=== PATIENT | male | born 1980 | race Caucasian/White ===

== ENCOUNTER 2018-01-10 08:29 | Emergency (ER) | payer BC ==
[2018-01-10 08:45] VITALS: BP 122/84
--- NOTE | 2018-01-10 09:02 | UC ---
Lower Extremity/Ankle HPI - HPI Summary HPI Summary: Pt c/o sudden onset of right ankle pain, swelling, erythema X 1 day. Pt has history of got but staples snot take alopurinol as prescribed. Pt also c/o itchy rash to bilateral medial and posterior calves after hiking yesterday and walking through plants that caused him to feel a "burning and itching" feeling and mild erythema. - History of Current Complaint Chief Complaint: UCLowerExtremity Stated Complaint: RT ANKLE CONCERN/RASH ON CALVES Time Seen by Provider: 01/10/18 08:51 Hx Obtained From: Patient Onset/Duration: Sudden Onset, Still Present Severity Initially: Mild Severity Currently: Moderate Pain Intensity: 10 Aggravating Factor(s): Standing, Ambulation Alleviating Factor(s): Rest, Elevation Able to Bear Weight: Yes - minimal - Risk Factors Gout Risk Factors: Male DVT Risk Factors: Negative Septic Arthritis Risk Factor: Negative - Allergies/Home Medications Allergies/Adverse Reactions: Allergies Allergy/AdvReac Type Severity Reaction Status Date / Time No Known Allergies Allergy Verified 01/10/18 08:43 Home Medications: Home Medications Ibuprofen TAB* [Advil TAB*] 600 mg PO Q6H PRN 01/10/18 [History Confirmed ] PMH/Surg Hx/FS Hx/Imm Hx Previously Healthy: Yes - Surgical History Surgical History: Yes Surgery Procedure, Year, and Place: right inguinal surg age 5 yo - Family History Known Family History: Positive: Cardiac Disease - Social History Occupation: Employed Full-time Lives: With Family Alcohol Use: Occasionally Substance Use Type: None Smoking Status (MU): Heavy Every Day Tobacco Smoker Type: Cigarettes, Smokeless Tobacco Amount Used/How Often: 1/2 PPD Length of Time of Smoking/Using Tobacco: 1 year Have You Smoked in the Last Year: Yes Household Exposure Type: Cigarettes Review of Systems Constitutional: Negative Skin: Rash Eyes: Negative ENT: Negative Respiratory: Negative Cardiovascular: Negative Gastrointestinal: Negative Genitourinary: Negative Motor: Decreased ROM - right ankle Neurovascular: Negative Musculoskeletal: Arthralgia, Decreased ROM, Edema, Myalgia Neurological: Negative Psychological: Negative Is Patient Immunocompromised?: No All Other Systems Reviewed And Are Negative: Yes Physical Exam Triage Information Reviewed: Yes Appearance: Pain Distress Vital Signs: Initial Vital Signs Temp 98.7 F 01/10/18 08:40 Pulse 62 01/10/18 08:40 Resp 15 01/10/18 08:40 BP 122/84 01/10/18 08:40 Pulse Ox 100 01/10/18 08:40 Vital Signs Reviewed: Yes Eye Exam: Normal ENT: Positive: Hearing grossly normal Dental Exam: Normal Neck exam: Normal Respiratory: Positive: No respiratory distress Musculoskeletal: Positive: ROM Limited @, Edema @ - right ankle, right lateral malleolus is warm , mild erythema, and moderate swelling Neurological Exam: Normal Psychological Exam: Normal Skin: Positive: rashes - right medial mid calf, mild erythema with 1-2 intact clear fluid filled blisters. Lower Extremity Course/Dx - Differential Dx/Diagnosis Differential Diagnosis/HQI/PQRI: Cellulitis, Gout Provider Diagnoses: gout. contact dermatitis Discharge - Sign-Out/Discharge Documenting (check all that apply): Patient Departure All imaging exams completed and their final reports reviewed: No Studies - Discharge Plan Condition: Stable Disposition: HOME Prescriptions: Colchicine* [Colcrys*] 0.6 mg PO DAILY #3 tab predniSONE TAB* [Deltasone 20 MG TAB*] 20 mg PO DAILY #3 tab Patient Education Materials: Contact Dermatitis (ED), Low Purine Diet (ED), Gout (ED) Referrals: [facility] [Provider Group] - As Soon As Possible No Primary Care Phys,NOPCP [Primary Care Provider] - - Billing Disposition and Condition Condition: STABLE Disposition: Home
== END 2018-01-10 09:15 | disposition home or self-care (01) ==
LOC: UCCORT 08:29
DX: M10.9 Gout, unspecified (principal); L25.9 Unspecified contact dermatitis, unspecified cause; F17.210 Nicotine dependence, cigarettes, uncomplicated
CPT/HCPCS: 99212; G0463

== ENCOUNTER 2018-03-29 17:29 | Emergency (ER) | payer BC ==
[2018-03-29 19:12] VITALS: BP 146/76
--- NOTE | 2018-03-29 20:32 | ED ---
Lower Extremity - HPI Summary HPI Summary: pt was playing hockey yesterday and the puck hit his left inner foot. he states that it hurt a lot. it is feeling better but it is still a little swollen. he does not like to take medications but he took aleve today. - History of Current Complaint Chief Complaint: UCLowerExtremity Stated Complaint: LT FOOT INJURY-SPORTS RELATED Hx Obtained From: Patient Mechanism Of Injury: Direct Blow - by a hockey puck Onset of Pain: Immediate Onset/Duration: Days - 1 Severity Currently: Moderate Pain Intensity: 4 - Allergies/Home Medications Allergies/Adverse Reactions: Allergies Allergy/AdvReac Type Severity Reaction Status Date / Time seasonal Allergy Wheezing Uncoded 03/29/18 19:06 PMH/Surg Hx/FS Hx/Imm Hx Previously Healthy: Yes Respiratory History: Reports: Hx Asthma - SEASONAL allergies - Surgical History Surgery Procedure, Year, and Place: right inguinal surg age 5 yo Infectious Disease History: No Infectious Disease History: Denies: Traveled Outside the [place] in Last 30 Days - Family History Known Family History: Positive: Cardiac Disease - Social History Alcohol Use: Occasionally Substance Use Type: Reports: None Smoking Status (MU): Heavy Every Day Tobacco Smoker Type: Cigarettes, Smokeless Tobacco Amount Used/How Often: 1/2 PPD Length of Time of Smoking/Using Tobacco: 1 year Have You Smoked in the Last Year: Yes Review of Systems Constitutional: Negative Eyes: Negative ENT: Negative Cardiovascular: Negative Respiratory: Negative Gastrointestinal: Negative Genitourinary: Negative Positive: Other - foot pain Skin: Negative Neurological: Negative Psychological: Normal All Other Systems Reviewed And Are Negative: No Physical Exam Triage Information Reviewed: Yes Vital Signs On Initial Exam: Initial Vitals Temp Pulse Resp BP Pulse Ox 98.6 F 77 12 146/76 100 03/29/18 19:07 03/29/18 19:07 03/29/18 19:07 03/29/18 19:07 03/29/18 19:07 Vital Signs Reviewed: Yes Appearance: Positive: Well-Appearing, No Pain Distress, Well-Nourished Skin: Positive: Warm, Dry, Other - light bruising to the medial dorsal aspect of proximal mid foot. multiple healing abrasions to his lower legs where his boots are and especially notable to the medial malleoli bilaterally. Head/Face: Positive: Normal Head/Face Inspection Eyes: Positive: Normal, EOMI, MARYA ENT: Positive: Normal ENT inspection, Hearing grossly normal, Pharynx normal Neck: Positive: Supple, Nontender Respiratory/Lung Sounds: Positive: Clear to Auscultation, Breath Sounds Present , Decreased Breath Sounds Cardiovascular: Positive: Normal, RRR Abdomen Description: Positive: Nontender, Soft Musculoskeletal: Positive: Normal, Other - nl rom of left foot, good distal pulses. small amount of swelling to the proximal dorsal midfoot. slightly tender to palpation to this area. Neurological: Positive: Normal, Sensory/Motor Intact, Alert, Oriented to Person Place, Time, CN Intact II-III Psychiatric: Positive: Normal AVPU Assessment: Alert Diagnostics - Vital Signs Vital Signs Temp Pulse Resp BP Pulse Ox 03/29/18 19:07 98.6 F 77 12 146/76 100 - Laboratory Lab Statement: Any lab studies that have been ordered have been reviewed, and results considered in the medical decision making process. Lower Extremity Course/Dx - Course Course Of Treatment: xray shows no acute frx. I wrapped pt's foot with flor bandage. pt given tylenol and motrin for pain. pt instructed not to play hockey for 1-2 weeks or until he feels better. He has multiple abrasions to his feet. I encouraged him to wear proper fitting hockey shoes and to apply antibiotic ointment to the abrasions and to not pick at these abrasions. - Diagnoses Provider Diagnoses: Foot sprain, Abrasion Discharge - Sign-Out/Discharge Documenting (check all that apply): Patient Departure All imaging exams completed and their final reports reviewed: Yes - Discharge Plan Condition: Stable Disposition: HOME Patient Education Materials: Foot Sprain (ED), Abrasion (ED) Referrals: No Primary Care Phys,NOPCP [Primary Care Provider] - [facility] [Provider Group] Additional Instructions: apply antibiotic ointment to the wounds. wear appropriately fitting hockey boots. take tylenol and motrin for pain. wear the flor bandage for comfort. followup with your primary care physician. - Billing Disposition and Condition Condition: STABLE Disposition: Home
== END 2018-03-29 20:53 | disposition home or self-care (01) ==
LOC: UCCORT 17:29
DX: S93.602A Unspecified sprain of left foot, initial encounter (principal); J45.909 Unspecified asthma, uncomplicated; F17.210 Nicotine dependence, cigarettes, uncomplicated; W20.8XXA Other cause of strike by thrown, projected or falling object, initial encounter; Y93.65 Activity, lacrosse and field hockey; Y92.9 Unspecified place or not applicable
CPT/HCPCS: 99211; G0463